=== PATIENT | male | born 1940 | race Caucasian/White ===

== ENCOUNTER 2022-03-11 05:01 | Inpatient (IN) ==
--- NOTE | 2022-02-08 14:12 | PAT Medication Instructions ---
Medication Instructions Date of Service February 08, 2022 Home Medications allopurinol 100 mg tablet 100 mg PO BID insulin glargine 100 unit/mL (3 mL) subcutaneous pen (Lantus Solostar U-100 Insulin) 20 unit subcut PM omeprazole 20 mg tablet,delayed release 20 mg PO DAILY PRN Acid Reflux albuterol sulfate 90 mcg/actuation aerosol inhaler 2 puff inhalation TID aspirin 81 mg capsule 81 mg PO QAM empagliflozin 25 mg tablet 12.5 mg PO QAM STOP 3 days before surgery empagliflozin 25 mg tablet 12.5 mg PO QAM Take morning of surgery With a small sip of water, OTHERWISE NOTHING TO EAT OR DRINK AFTER MIDNIGHT: allopurinol 100 mg tablet 100 mg PO BID omeprazole 20 mg tablet,delayed release 20 mg PO DAILY PRN Acid Reflux(if needed) albuterol sulfate 90 mcg/actuation aerosol inhaler 2 puff inhalation TID aspirin 81 mg capsule 81 mg PO QAM (unless directed otherwise by surgeon) Take evening before surgery allopurinol 100 mg tablet 100 mg PO BID insulin glargine 100 unit/mL (3 mL) subcutaneous pen (Lantus Solostar U-100 Insulin) 20 unit subcut PM albuterol sulfate 90 mcg/actuation aerosol inhaler 2 puff inhalation TID Other Notes If you have any questions please call us at [phone] or [phone] or [phone] or [phone]
--- NOTE | 2022-02-11 14:58 | Anesthesiology Consultation ---
Date of Service February 11, 2022 Assessment & Plan (1) Encounter for pre-operative examination: Chart Review Chart Review: Acceptable Risk for Surgery (pending surgeon ordered PCP clearance (response regarding creatinine)) and Patient seen in Pre Admission Testing - Awaiting surgeon ordered PCP clearance (did write note to PCP re: elevated creatinine and CXR/previous CT of thorax findings) - Check BSG AM DOS *Pt is NOT an OPJ due to age Per PAT appt on 02/11/22, patient denies any recent travel or large group activities. No known Covid positive exposures or Covid related symptoms. No known Covid infection in the past 90 days. Pt is vaccinated for Covid. Will leave to surgeon's discretion if preop Covid testing needed. Educated on importance of using Covid precautions one week prior to surgery Right Reverse TSA 10/09/20= Done under GA with Grade 1 view (cords clear), MAC #3. ETT #7.5. Atraumatic DL x 1 Teaching & Discussion Pre-Anesthesia Teaching/Discussion Notes: Instructed NPO after midnight before surgery,except medications with 15 cc of water. Medication instructions provided according to the PAT guidelines. History Surgery Operation Date: 03/11/22 08:45 Proposed Procedures p Left Total Shoulder Arthroplasty Reverse - Vaibhav Noble M.D. Height/Weight Height: 5 ft 6 in Weight: 80.7 kg Allergies Allergy/AdvReac Type Severity Reaction Status Date / Time No Known Allergies Allergy Verified 02/08/22 10:08 Medications Home Medications Medication Instructions Recorded Confirmed Last Taken allopurinol 100 mg tablet 100 mg PO BID 09/05/20 02/08/22 10/08/20 22:00 insulin glargine 100 unit/mL (3 20 unit subcut PM 09/05/20 02/08/22 10/08/20 22:00 mL) subcutaneous pen (Lantus Solostar U-100 Insulin) omeprazole 20 mg tablet,delayed 20 mg PO DAILY PRN Acid Reflux 09/05/20 02/08/22 1 Month Ago release ~09/08/20 albuterol sulfate 90 mcg/actuation 2 puff inhalation TID 02/08/22 02/08/22 Unknown aerosol inhaler aspirin 81 mg capsule 81 mg PO QAM 02/08/22 02/08/22 Unknown empagliflozin 25 mg tablet 12.5 mg PO QAM 02/08/22 02/08/22 Unknown Past Medical History Medical History (Updated 02/11/22 @ 15:17 by Suzi Lassiter PA-C) COPD (chronic obstructive pulmonary disease) Uses albuterol BID and PRN with activity Diabetes mellitus, type 2 Glucose had been fluctuating but improved recently Diabetic neuropathy R foot - no issues recently GERD (gastroesophageal reflux disease) Well controlled and stable- diet dependent Gout No recent issues Hearing deficit Bilateral hearing aid Hyperlipidemia No meds - [facility] aware Hypertension No meds - [facility] aware Exercise / Class Metabolic Activity II 4-5 Yardwork/Stairs/Walk up hill (one flight of stairs - no chest pain or SOB ) Past Family History Family History Other No family history of adverse response to anesthesia Past Surgical History Surgical History History of tonsillectomy History of transurethral resection of prostate Status post reverse total arthroplasty of right shoulder (~10/09/20) @ [facility] Dr. Noble Past Anesthesia History No Hx of Anesthesia Complications and No Family Hx of Anesthesia Complications History of PONV No Hx of PONV and No Hx of Motion Sickness Social History Smoking Status: Former smoker tobacco type: cigarettes Do You Dip or Chew Tobacco: No Smoking End Date: quit 15yrs ago Hx Alcohol Use: No Hx Substance Use: No substance use type: does not use Review of Systems CARTER- chronic and stable (hx of wheezing)- secondary to COPD. Occ coughing (chronic and stable)- secondary to COPD Snoring- no hx of sleep study Patient denies chest pain, shortness of breath at rest, wheezing, palpitations. No hx of seizures, stroke, IA. No hx of blood clots or blood transfusions Physical Exam Vital Signs VITALS BP 130/73 P 72 TEMP 98.2 SP02 95% RESP 16 Constitutional no acute distress ENMT Mouth: + small oral opening; no TMJ clicking Thyromental Distance: > or= 3.5 Finger Breadths (3.5) Mallampati Class: III Missing all teeth exception lower left molar Neck + limited neck extension (mild ) and + facial hair (advised to shave/trim ) Respiratory normal respiratory effort; no respiratory distress Auscultation: lungs clear to auscultation bilaterally; no wheezes Cardiovascular Rate/Rhythm: regular rate and regular rhythm Heart Sounds: no murmur Vessels: no carotid bruit Musculoskeletal Spine: + pain with cervical ROM Extremities: extremities normal to inspection Psychiatric Orientation: alert Lab Results Anesthesia Preop Results Results Anesthesia Widget: WBC 10.43 K/ul (4.8-10.8) 02/11/22 Hgb 15.2 g/dl (14.0-18.0) 02/11/22 Hct 46.3 % (40.1-51.0) 02/11/22 Plt 189 K/uL (130-400) 02/11/22 Na 141 mmol/L (136-145) 02/11/22 K 4.3 mmol/L (3.5-5.1) 02/11/22 Cl 107 mmol/L (98-107) 02/11/22 CO2 26 mmol/L (21-32) 02/11/22 BUN 25 mg/dl (6-23) H 02/11/22 Creat 1.51 mg/dl (0.6-1.4) H 02/11/22 Glucose Level 115 mg/dl (70-99(Fasting)) H 02/11/22 PT 10.2 Seconds (9.0-12.0) 02/11/22 PTT 30.5 Seconds (21.0-31.0) 02/11/22 INR 1.0 (0.9-1.1) 02/11/22 HA1c 6.9 % (4.5-5.6) H 02/11/22 Urine Color Yellow 02/11/22 Urine Appearance Clear (Clear) 02/11/22 Urine pH 6.0 (4.5-7.5) 02/11/22 Urine Specific [place] 1.027 (1.000-1.030) 02/11/22 Urine Protein Negative (Negative) 02/11/22 Urine Glucose (UA) 3+ (Negative) H 02/11/22 Urine Ketones Negative (Negative) 02/11/22 Urine Blood Negative (Negative) 02/11/22 Urine Nitrite Negative (Negative) 02/11/22 Urine Bilirubin Negative (Negative) 02/11/22 Urine Urobilinogen Negative (Negative) 02/11/22 Urine Leukocyte Esterase Negative (Negative) 02/11/22 Blood Type O Positive 02/11/22 Antibody Screen NEGATIVE 02/11/22 Testing Laboratory Results Elevated creatinine- did write note to PCP to address at upcoming clearance appt Electrocardiogram Date: 02/11/22 Findings: + NSR @ (67bpm ) Left axis deviation RBBB When compared to EKG from September 17, 2020- no significant peñaloza was found per cardio. Chest X-Ray Date: 02/11/22 FINDINGS: Partial visualization right shoulder total arthroplasty. The cardiomediastinal silhouette is normal. Redemonstration of a 10 mm nodule in the right lower lung. No evidence of pleural effusion or pneumothorax. IMPRESSION: No acute abnormalities are seen. A right lower lung nodule is unchanged, if not previously evaluated, CT chest can be performed. (CT of thorax done 09/25/20- see below) Other Testing CT of thorax without contrast 09/25/2020= approximately 6 mm nodule at the lateral aspect of the upper lobe of the right lung. If patient is considered clinically low risk, no follow-up necessary. If patient is considered clinically high risk, a 12-month CT scan follow-up may be considered. Also present is an approximately 12 mm hamartoma or granuloma along the right minor fissure. Mild dependent atelectatic changes at bilateral lung bases. No focal consolidation in either lung.
--- NOTE | 2022-03-10 22:14 | History & Physical Report ---
Date of Service March 10, 2022 Assessment & Plan (1) Left rotator cuff tear arthropathy: Plan: His MRI confirms left shoulder massive, retracted, full-thickness rotator cuff tear with near complete fatty atrophy of the rotator cuff muscle bellies and proximal migration of the humeral head, consistent with rotator cuff tear arthropathy. Conservative management with steroid injections have just been ineffective for him. I advised him that his only viable surgical treatment option for this left shoulder would be a reverse total shoulder arthroplasty, similar to his right side. He had excellent results on the right side, and would like to pursue similar treatment on the left. I think is reasonable. Risks, benefits, and alternatives of surgery were explained in detail. The surgical procedure, as well as postoperative recovery and rehabilitation, was al so explained in detail. Risks include bleeding; infection; damage to surrounding structures such as nerves, blood vessels, and tendons that run in the area; persistent pain or stiffness; hardware failure; dislocation; brachial plexus palsy; blood clots; or need for further surgery. The patient understands all of this and wishes to proceed with surgery. Informed consent was obtained. History of Present Illness Chief Complaint: Left shoulder pain Primary Care Provider: NO PCP Mr. Rey returns today primarily for his left shoulder pain. He has had pain in this left shoulder for at least 3 years, possibly longer with gradual progressive worsening. This significantly worsened around November 2021 when he strained it attempting to help his during a syncopal episode. He previously had a left shoulder steroid injection in March 2020 when he lived in [place], and I gave him 1 in July 2020. Neither one of these injections gave him any significant improvement in his pain. He has since had a reverse total shoulder arthroplasty on his right with excellent results and complete resolution of his pain on that side, and he is interested in similar treatment on his left. Allergies Allergy/AdvReac Type Severity Reaction Status Date / Time No Known Allergies Allergy Verified 02/08/22 10:08 Home Medications Medication Instructions Recorded Confirmed Type allopurinol 100 mg tablet 100 mg PO BID 09/05/20 02/08/22 History insulin glargine 100 unit/mL (3 20 unit subcut PM 09/05/20 02/08/22 History mL) subcutaneous pen (Lantus Solostar U-100 Insulin) omeprazole 20 mg tablet,delayed 20 mg PO DAILY PRN Acid Reflux 09/05/20 02/08/22 History release albuterol sulfate 90 mcg/actuation 2 puff inhalation TID 02/08/22 02/08/22 History aerosol inhaler aspirin 81 mg capsule 81 mg PO QAM 02/08/22 02/08/22 History empagliflozin 25 mg tablet 12.5 mg PO QAM 02/08/22 02/08/22 History Past Med/Surg History Medical History (Updated 03/10/22 @ 22:14 by Vaibhav Noble M.D.) COPD (chronic obstructive pulmonary disease) Uses albuterol BID and PRN with activity Diabetes mellitus, type 2 Glucose had been fluctuating but improved recently Diabetic neuropathy R foot - no issues recently GERD (gastroesophageal reflux disease) Well controlled and stable- diet dependent Gout No recent issues Hearing deficit Bilateral hearing aid Hyperlipidemia No meds - [facility] aware Hypertension No meds - [facility] aware Surgical History History of tonsillectomy History of transurethral resection of prostate Status post reverse total arthroplasty of right shoulder (~10/09/20) @ [facility] Dr. Noble Family History Other No family history of adverse response to anesthesia Social History Smoking Status: Former smoker Second Hand Exposure: No; Hx Alcohol Use: No Hx Substance Use: No Preferred Language: Samoan Communication Ability: Effective Position Classification Specialist Required: No Beliefs That Will Affect Care: None Current Living Situation: Spouse Feels Safe at Home: Yes Assistive Devices: Hearing Aid - Bilateral Physical Exam Physical Exam: Examination of the left shoulder shows significant limitation in shoulder range of motion due to pain, with palpable crepitus during motion. He has about 150 degrees of active abduction, and external rotation only to neutral. Rotator cuff strength is globally weak. Results & Data ([facility]) Diagnostic Findings Previous x-rays of the left shoulder were reviewed. They show obvious proximal migration of the humeral head, with articulation and remodeling on the undersurface of the acromion, consistent with rotator cuff tear arthropathy. New MRI of the left shoulder done this morning was reviewed. It is significantly limited by motion artifact. However, does show complete full- thickness tear of the entirety of the supraspinatus and infraspinatus tendons, with retraction to the level of the glenoid rim. There is near complete fatty atrophy of the supraspinatus and infraspinatus muscle bellies. He may have a proximal biceps tendon rupture, but this is difficult to determine.
[2022-03-11] MEDS ORDERED: ceFAZolin 2000MG 2,000 MG/15 ML SYR IV SCH (06:00)
[2022-03-11] MEDS ORDERED: ACETAMINOPHEN 500 MG TAB PO SCH (06:00)
[2022-03-11] MEDS ORDERED: GABAPENTIN 300 MG CAP PO SCH (06:00)
[2022-03-11] MEDS ORDERED: TRANEXAMIC ACID 1,000 MG **IV Pre-op IV SCH (06:00)
[2022-03-11] MEDS ORDERED: dexAMETHasone 4 MG TAB PO SCH (06:00)
[2022-03-11] MEDS ORDERED: CeleBREX 200 MG CAP PO SCH (06:00)
[2022-03-11] MEDS ORDERED: METOCLOPRAMIDE HCL 10 MG TABLET PO SCH (06:00)
[2022-03-11] MEDS ORDERED: LR 15ML/HR IV SCH (06:00)
[2022-03-11] MEDS ORDERED: FAMOTIDINE 20 MG TAB PO SCH (06:00)
[2022-03-11] MEDS ORDERED: BUPIVACAINE 0.5 % 5 MG/1 ML PF 10ML VIAL ONE (06:15)
[2022-03-11] MEDS ORDERED: ONDANSETRON INJ 2 MG/ML 2 ML VIAL IV PRN ×2 (06:30→10:05)
[2022-03-11] MEDS ORDERED: ATROPINE SULFATE 0.1 MG/ML 10ML SYR IV PRN (06:30)
[2022-03-11] MEDS ORDERED: fentaNYL citrate 100 MCG/2 ML VIAL IV PRN (06:30)
[2022-03-11] MEDS ORDERED: ePHEDrine sulfate 50 MG/ML AMP IV PRN (06:30)
[2022-03-11] MEDS ORDERED: ONDANSETRON INJ 2 MG/ML 2 ML VIAL ONE (06:41)
[2022-03-11] MEDS ORDERED: fentaNYL citrate 100 MCG/2 ML VIAL ONE (06:41)
[2022-03-11] MEDS ORDERED: MIDAZOLAM HCL 1 MG/ML 2ML VIAL ONE (06:41)
[2022-03-11] MEDS ORDERED: PROPOFOL IV EMULSION 10 MG/ML 20 ML VIAL IV ONE (06:41)
[2022-03-11] MEDS ORDERED: LIDOCAINE 2% 2 ML VIAL/AMP(20MG/ML) INFIL ONE (06:41)
--- NOTE | 2022-03-11 07:00 | History & Physical Bridge Note ---
Date of Service March 11, 2022 History & Physical Bridge Note I have examined the patient, reviewed the History & Physical and in the interval since the performance of the History & Physical I have noted the following changes of clinical significance: no changes noted
[2022-03-11] MEDS ORDERED: NEOSTIGMINE METHYLSULFATE 1 MG/ML 10ML VIAL ONE (08:01)
[2022-03-11] MEDS ORDERED: GLYCOPYRROLATE 0.2 MG/ML VIAL ONE (08:01)
[2022-03-11] MEDS ORDERED: ROCURONIUM BROMIDE 10 MG/ML 5 ML VIAL IV ONE (08:01)
--- NOTE | 2022-03-11 09:04 | Operative Report ---
Post Operative Report Pre & Post Diagnosis Operation Date: 03/11/22 07:00 Pre-Op Diagnosis: Left Shoulder Rotator Cuff Tear Arthropathy Post-Op Diagnosis: Left Shoulder Rotator Cuff Tear Arthropathy with proximal biceps tendon rupture I identified the patient and participated in the time-out.: Yes Procedure Operation Date: 03/11/22 07:00 Actual Procedures Left reverse total shoulder arthroplasty (64147) - Vaibhav Noble M.D. Surgeon Vaibhav Noble Bond Runner Harjit Ridley PA-C Estimated Blood Loss 75 Findings Consistent with Post-Op Diagnosis Specimens None Drains None Anesthesia Type General Regional Complications none Disposition Disposition: Recovery Room Indications Mr. Rey is a 81-year-old male with left shoulder pain and weakness. History, clinical exam, and imaging were consistent with the above diagnosis. Risks, benefits, and alternatives of surgery were explained in detail. The patient understood all this and wished to proceed. Description of Procedure Components Implanted: Tornier Reverse Total Shoulder implants Perform glenoid baseplate: 25mm, 15 degree full wedge with 6.5mm central screw and 5.0mm peripheral screws Glenosphere: 39mm standard Ascend Flex humeral stem: 4B Standard length (78mm) Humeral tray: 1.5 mm offset, +0mm thickness Polyethylene insert: 39mm, +6mm thickness Patient was identified in the preoperative holding area. Operative extremity was marked. Regional blockade was given by the Anesthesia Staff. Patient was then brought back to the operating room, and general anesthesia was induced without complication. Appropriate weight-based dose of Ancef was infused intravenously for antibiotic prophylaxis. The patient was then placed in the beachchair position. Left arm was then prepped and draped in a standard sterile fashion using Chlorhexidine prep. A standard deltopectoral incision was made through the skin and subcutaneous tissue. The cephalic vein was identified and retracted medially. Small branches to the deltoid were coagulated as necessary. The clavipectoral fascia was then incised and the subdeltoid space was opened. The rotator cuff was found to be deficient, and I therefore decided to perform a reverse total shoulder arthroplasty as planned preoperatively. The biceps tendon was noted to be absent from the bicipital groove, consistent with a preoperative biceps tendon rupture. Therefore, no biceps tenodesis was performed. The remaining subscapularis tendon was elevated subperiosteally off of the lesser tuberosity. The glenohumeral joint was then dislocated, and large osteophytes were debrided with a ronguer. The intramedullary canal of the humerus was then opened with a canal finder. The humeral head cut was then made in the appropriate inclination and version using the cutting guide. The humeral canal was then sequentially broached to the appropriate size. A protective cap was then placed on top of the humeral trial. I then turned my attention to the glenoid. The proximal stump of the biceps tendon was excised, along with the labrum circumferentially around the glenoid. The Blueprint drill guide was then positioned on the glenoid, and the guidepin was then inserted. The 15 degree angled reamer was then inserted over the guidepin and an reamed to an appropriate depth. The central screw hole was drilled, and appropriate length 6.5mm central screw was selected. The baseplate was then implanted into place according to our preoperative Blueprint plan by tightening down the central screw. A peripheral 5mm nonlocking screw was placed postero-superiorly first for additional compression of the baseplate, and then additional locking 5 mm peripheral screws were placed to complete fixation of the baseplate. Glenosphere was then impacted and secured. A trial humeral tray and insert were placed on the trial humeral stem, and a trial reduction was carried out. Once I achieved acceptable joint stability and range of motion with the trial implants, the final humeral implants were assembled on the back table and then impacted into position. I then took the shoulder through full range of motion to ensure good stability and acceptable motion. Wound was then copiously irrigated with sterile saline. Deep fascia was closed with 0 V-lock suture. Subcutaneous tissue was closed with 2-0 V-lock, and skin was closed with 3-0 V-lock. Skin was then sealed with Dermabond. Sterile dressings were then applied with a waterproof silver-impregnated dressing, and the arm was placed into a sling. The patient was awakened from anesthesia and taken to the Post Anesthesia Care Unit in stable condition. There were no immediate complications from the procedure. I was present and scrubbed for the entire procedure, with the exception of final skin closure and dressing application. Due to the complex nature of the procedure, the entire surgery was performed with the operational assistance of Harjit Ridley PA-C. The visitor information assistant, under direct supervision, was involved in the performance of all aspects of the surgical procedure including hemostasis, tissue incision and retraction, instrument management, patient positioning, and wound closure. I attest to the content of the Intraoperative Record and any orders documented therein. Any exceptions are noted below.
[2022-03-11] MEDS ORDERED: METOCLOPRAMIDE HCL INJ 5 MG/ML 2 ML VIAL IV PRN (10:05)
[2022-03-11] MEDS ORDERED: MAGNESIUM HYDROXIDE SUSP 30 ML UDC PO PRN (10:05)
[2022-03-11] MEDS ORDERED: NALOXONE HCL 0.4 MG/1 ML VIAL/CARP IV PRN (10:05)
[2022-03-11] MEDS ORDERED: bisacodyL 10 MG SUPP PR PRN (10:05)
[2022-03-11] MEDS ORDERED: oxyCODONE HCL IR 5 MG TAB (IMMEDIATE RELEASE) PO PRN (10:05)
[2022-03-11] MEDS ORDERED: PANTOprazole 40 MG TAB PO PRN (10:13)
[2022-03-11] MEDS ORDERED: PHARMACY GLYCEMIC MGMT CONSULT PRN (10:18)
[2022-03-11] MEDS: SODIUM CHLORIDE 0.9% 1000ML 1,000 ML IV SCH ×2 (10:20→21:42)
--- NOTE | 2022-03-11 10:40 | Anesthesiology Progress Note ---
Date of Service March 11, 2022 Anesthesia Post Procedure Vital Signs Vital Signs: Temp Pulse Pulse Resp BP Pulse Ox O2 Del Method 03/11/22 10:26 97.7 F 68 18 130/78 94 Nasal Cannula 03/11/22 10:03 97.7 F 65 18 125/68 94 Nasal Cannula 03/11/22 09:50 96.8 F L 63 15 125/63 94 Nasal Cannula 03/11/22 09:40 67 14 128/67 91 Nasal Cannula 03/11/22 09:30 69 14 132/77 98 Oxymask 03/11/22 09:20 96.8 F L 71 14 133/71 98 Oxymask 03/11/22 05:39 98.1 F 77 16 152/80 H 95 Room Air O2 Flow Rate 03/11/22 10:26 2 03/11/22 10:03 2 03/11/22 09:50 2 03/11/22 09:40 2 03/11/22 09:30 4 03/11/22 09:20 6 03/11/22 05:39 Pain Intensity Left Shoulder: Pain Intensity: 4 Transfer of Care Handoff Completed per policy Notes Mental Status: alert / awake / arousable and participated in evaluation Patient Amnestic to Procedure: Yes Nausea / Vomiting: adequately controlled Pain: adequately controlled Airway Patency, RR, SpO2: stable & adequate BP & HR: stable & adequate Hydration State: stable & adequate Anesthetic Complications: no major complications apparent and Pt Satisfied with anesthetic care
[2022-03-11] MEDS ORDERED: GLUCOSE 10 TAB/TUBE PO PRN (11:15)
[2022-03-11] MEDS ORDERED: CARBOHYDRATES FOR HYPOGLYCEMIA PO PRN (11:15)
[2022-03-11] MEDS ORDERED: GLUCOSE 40% GEL 15 GM TUBE PO PRN (11:15)
[2022-03-11] MEDS ORDERED: GLUCAGON FOR INJ 1 MG VIAL SQ PRN (11:15)
[2022-03-11] MEDS ORDERED: DEXTROSE 50% 50 ML SYRINGE IV PRN (11:15)
[2022-03-11] MEDS: ACETAMINOPHEN 500 MG TAB PO SCH ×3 (12:04→23:00)
[2022-03-11] MEDS: INSULIN ASPART PER UNIT SC SCH ×3 (12:37→21:30)
--- NOTE | 2022-03-11 13:06 | Pharmacy Report ---
Pharmacy Glycemic Short Note 2 - Date of Service March 11, 2022 - Glycemic Short BSG Results (Last 24 hours): 03/11/22 03/11/22 03/11/22 05:19 09:22 12:06 POC Glucose 155 H 157 H 231 H OUTPATIENT ANTIDIABETIC REGIMEN: * Lantus 20 units SQ qPM * Jardiance 12.5mg PO qAM * HbA1c: 6.9% (02/11/22) ASSESSMENT: * Mr Rey is a 81yo diabetic M s/p L total shoulder this morning w/ Dr Noble. * Pt received PO dexamethasone pre-op, which is likely to cause steroid-induced hyperglycemia. * Pt is ordered a regular diet, which he appears to have tolerated for lunch today. * Novolog added to patient's Lantus regimen on admission. * Will follow and adjust as indicated. PLAN FOR INPATIENT GLYCEMIC CONTROL: * Hold outpatient oral diabetes medications * Basal insulin * Lantus 20 units SQ qPM * Bolus insulin * NovoLog per scale ACHS or Q6hrs while NPO * Goal Range: Low 110 mg/dL - High 140 mg/dL * Correction Factor: 40 mg/dL/unit * Nutritional / Prandial insulin per carb ratio of 1 unit per 15 grams CHO consumed
--- NOTE | 2022-03-11 13:13 | XRay Report ---
XR shoulder LT min 2V routine CLINICAL HISTORY: Post shoulder surgery. COMPARISON: None FINDINGS: Alignment of the left shoulder arthroplasty is anatomic. No periprosthetic fracture is masha ntified. No unexpected radiopaque foreign bodies are present. IMPRESSION: Expected findings following left shoulder arthroplasty. ACT 112: Negative or not required by law. Electronically signed by: Josef Benajmin M.D. 03/11/2022 1:12 PM
[2022-03-11] MEDS: ALBUTEROL HFA 8 GM INHALER INH SCH ×2 (13:49→20:05)
[2022-03-11] MEDS: IBUPROFEN 600 MG TAB PO SCH ×2 (14:57→20:13)
[2022-03-11] MEDS: ceFAZolin 2000MG 2,000 MG/15 ML SYR IV SCH ×2 (14:59→23:00)
[2022-03-11] MEDS: allopurinoL 100 MG TAB PO SCH (20:13)
[2022-03-11] MEDS: DOCUSATE SODIUM 100 MG CAP PO SCH (20:13)
[2022-03-11] MEDS ORDERED: SENNA 8.6 MG TAB PO SCH (21:00)
[2022-03-11] MEDS ORDERED: LANTUS PER UNIT CHARGE SQ SCH (21:00)
[2022-03-12] MEDS: IBUPROFEN 600 MG TAB PO SCH ×2 (03:52→08:55)
[2022-03-12] MEDS: ACETAMINOPHEN 500 MG TAB PO SCH ×2 (06:02→12:53)
[2022-03-12 06:57] LABS: Basophils # (auto) 0.02 K/uL (0-0.2); Basophils % (auto) 0.1 %; Hematocrit (blood only) 38.7 % (40.1-51.0); Hemoglobin 12.7 g/dl (14.0-18.0); Immature Granulocytes # (auto) 0.06 K/uL (0.00-0.02); Immature Granulocytes % (auto) 0.4 %; Lymphocytes # (auto) 0.97 K/uL (1.2-3.4); Lymphocytes % (auto) 6.3 %; Mean Corpuscular Hemoglobin 28.5 pg (25.0-34.0); Mean Corpuscular Hgb Conc 32.8 g/dL (32.0-36.0); Mean Corpuscular Volume 86.8 fL (80.0-100.0); Mean Platelet Volume 9.8 fL (9.4-12.4); Monocytes # (auto) 1.04 K/uL (0.24-0.82); Monocytes % (auto) 6.7 %; Neutrophils # (auto) 13.32 K/uL (1.4-6.5); Neutrophils % (auto) 86.5 %; Platelet Count 178 K/uL (130-400); RDW Coefficient of Variation 14.3 % (11.5-14.5); RDW Standard Deviation 45.1 fL (36.4-46.3); Red Blood Count 4.46 M/uL (4.63-6.08); White Blood Count 15.41 K/ul (4.8-10.8)
[2022-03-12] MEDS: ALBUTEROL HFA 8 GM INHALER INH SCH ×2 (07:05→12:27)
[2022-03-12 07:21] LABS: BUN Creatinine Ratio 18.1 (10-20); Calcium 8.2 mg/dl (8.5-10.1); Creatinine Clr Calc Pharmacy 41.3 ml/min; Est GFR (African American) 53.2 ml/min; Est GFR (Non-African American) 45.9 ml/min; Potassium 4.8 mmol/L (3.5-5.1)
[2022-03-12] MEDS: INSULIN ASPART PER UNIT SC SCH ×2 (08:54→12:52)
[2022-03-12] MEDS: DOCUSATE SODIUM 100 MG CAP PO SCH (08:55)
[2022-03-12] MEDS: allopurinoL 100 MG TAB PO SCH (08:55)
[2022-03-12] MEDS ORDERED: NON-FORMULARY MEDICATION (Empagliflozin 25 mg Tablet) PO SCH (09:00)
[2022-03-12] MEDS ORDERED: MULTIVITAMIN TAB PO SCH (09:00)
[2022-03-12] MEDS ORDERED: ASPIRIN 325 MG ECTAB PO SCH (09:00)
--- NOTE | 2022-03-12 09:33 | Orthopedic Progress Note ---
Date of Service March 12, 2022 Assessment & Plan (1) Left rotator cuff tear arthropathy: Plan: Postop day 1 status post left reverse total shoulder arthroplasty. PT/OT protocols. Nonweightbearing on the left upper extremity. DVT prophylaxis-aspirin p.o. daily, SCDs. Pain management as written. Mild increase in his creatinine this morning. Preoperative creatinine was 1.51. This morning is 1.44. Discussed with patient that he should follow-up with his primary care physician for repeat labs in the near future. DC planning-patient planning for outpatient PT upon discharge. Plan for discharge to home today. Admission and Anticipated Discharge Date Admission Date: March 11, 2022 Subjective Postop day 1 Patient sitting up in bed awake and alert. No complaints this morning. Pain is controlled. States he has a little bit of residual tingling in his thumb from the operative side but otherwise feels well. Denies chest pain, shortness of breath, lightheadedness. Physical Exam Physical Exam: Silverlon dressing is clean, dry, and intact. Patient has good range of motion of his left wrist and fingers. Good strength. Mild residual numbness in the left thumb. Cap refill is less than [address] Results & Data ([facility]) Vital Signs (Past 12 Hours) Vital Signs Temp Pulse Pulse Resp BP Pulse Ox O2 Del Method 03/12/22 07:05 73 14 92 Room Air 03/12/22 08:20 36.5 C 71 16 129/70 92 Room Air 03/12/22 02:23 36.5 C 67 18 121/63 93 Room Air 03/11/22 22:27 36.5 C 69 17 128/64 93 Room Air FiO2 03/12/22 07:05 21 03/12/22 08:20 03/12/22 02:23 03/11/22 22:27 Laboratory Results Laboratory Results WBC 15.41 K/ul (4.8-10.8) H 03/12/22 06:29 RBC 4.46 M/uL (4.63-6.08) L 03/12/22 06:29 Hgb 12.7 g/dl (14.0-18.0) L 03/12/22 06:29 Hct 38.7 % (40.1-51.0) L 03/12/22 06:29 MCV 86.8 fL (80.0-100.0) 03/12/22 06: MCH 28.5 pg (25.0-34.0) 03/12/22: MCHC 32.8 g/dL (32.0-36.0) 03/12/22 06: RDW Std Deviation 45.1 fL (36.4-46.3) 03/12/22: RDW Coeff of Sheron 14.3 % (11.5-14.5) 03/12/22: Plt Count 178 K/uL (130-400) 03/12/22 06: MPV 9.8 fL (9.4-12.4) 03/12/22: Immature Gran % (Auto) 0.4 % 03/12/22: Neut % (Auto) 86.5 % 03/12/22 06: Lymph % (Auto) 6.3 % 03/12/22: Delta % (Auto) 6.7 % 03/12/22: Eos % (Auto) 0.0 % 03/12/22 06: Baso % (Auto) 0.1 % 03/12/22: Neut # (Auto) 13.32 K/uL (1.4-6.5) H 03/12/22 06: Lymph # (Auto) 0.97 K/uL (1.2-3.4) L 03/12/22: Delta # (Auto) 1.04 K/uL (0.24-0.82) H 03/12/22: Eos # (Auto) 0.00 K/uL (0-0.50) 03/12/22 06: Baso # (Auto) 0.02 K/uL (0-0.2) 03/12/22: Immature Gran # (Auto) 0.06 K/uL (0.00-0.02) H 03/12/22: Sodium 134 mmol/L (136-145) L 03/12/22 06: Potassium 4.8 mmol/L (3.5-5.1) 03/12/22: Chloride 106 mmol/L (98-107) 03/12/22 06: Carbon Dioxide 23 mmol/L (21-32) 03/12/22 06:29 Anion Gap 5 (3-11) 03/12/22 06:29 BUN 26 mg/dl (6-23) H 03/12/22 06:29 Creatinine 1.44 mg/dl (0.6-1.4) H 03/12/22 06:29 Est Cr Clr Drug Dosing 41.3 ml/min 03/12/22 06:29 Est GFR ( Amer) 53.2 ml/min 03/12/22 06:29 Est GFR (Non-Af Amer) 45.9 ml/min 03/12/22 06:29 BUN/Creatinine Ratio 18.1 (10-20) 03/12/22 06:29 Glucose 141 mg/dl (70-99(Fasting)) H 03/12/22 06:29 POC Glucose 137 mg/dl (70-99) H 03/12/22 07:57 Calcium 8.2 mg/dl (8.5-10.1) L 03/12/22 06:29 SARS-CoV-2, RNA, NAAT NEGATIVE (NEGATIVE) 03/11/22 05:20 Impressions Shoulder X-Ray 03/11/22 09:14 XR shoulder LT min 2V routine CLINICAL HISTORY: Post shoulder surgery. COMPARISON: None FINDINGS: Alignment of the left shoulder arthroplasty is anatomic. No periprosthetic fracture is identified. No unexpected radiopaque foreign bodies are present. IMPRESSION: Expected findings following left shoulder arthroplasty. ACT 112: Negative or not required by law. Electronically signed by: Josef Benjamin M.D. 03/11/2022 1:12 PM
--- NOTE | 2022-03-16 12:44 | Discharge Summary ---
Date of Service March 16, 2022 Admission HPI Per Admitting Provider Mr. Rey returns today primarily for his left shoulder pain. He has had pain in this left shoulder for at least 3 years, possibly longer with gradual progressive worsening. This significantly worsened around November 2021 when he strained it attempting to help his during a syncopal episode. He previously had a left shoulder steroid injection in March 2020 when he lived in [place], and I gave him 1 in July 2020. Neither one of these injections gave him any significant improvement in his pain. He has since had a reverse total shoulder arthroplasty on his right with excellent results and com plete resolution of his pain on that side, and he is interested in similar treatment on his left. Admission Exam Per Admitting Provider Physical Exam: Examination of the left shoulder shows significant limitation in shoulder range of motion due to pain, with palpable crepitus during motion. He has about 150 degrees of active abduction, and external rotation only to neutral. Rotator cuff strength is globally weak. Principal Diagnosis Left Rotator Cuff Tear Arthropathy Discharge Data Allergies Allergy/AdvReac Type Severity Reaction Status Date / Time No Known Allergies Allergy Verified 03/11/22 05:34 Procedures Performed Operation Date: 03/11/22 07:00 Actual Procedures p Left Total Shoulder Arthroplasty Reverse(Left) - Vaibhav Noble M.D. Ordered Studies 03/11/22 05:00 US - OR guided needle placemen Routine Hospital Course (1) Left rotator cuff tear arthropathy: Patient:MIGEL REY Admit Date:03/11/22 MR#:[id number] Att Phy:Vaibhav Noble M.D. Acct ID:[id number] [facility] Phy:Saji Boyd MD Date:1940 [facility] Phy: Age:81 Location:3E Sex:M Room/Bed:E323-1 cc: ~ *NOTICE TO RECEIVING LIBERTARIAN/AGENCY This information is strictly Confidential and protected under [place] law. [place] law prohibits you from making any further disclosure of this information unless further disclosure is expressly permitted by the written consent of the person to whom it pertains or is authorized by law. A general authorization for the release of medical or other information is not sufficient for this purpose. Hospital accepts no responsibility if the information is made available to any other person, INCLUDING THE PATIENT. Date of Service March 12, 2022 Assessment & Plan (1) Left rotator cuff tear arthropathy: Plan: Postop day 1 status post left reverse total shoulder arthroplasty. PT/OT protocols. Nonweightbearing on the left upper extremity. DVT prophylaxis-aspirin p.o. daily, SCDs. Pain management as written. Mild increase in his creatinine this morning. Preoperative creatinine was 1.51. This morning is 1.44. Discussed with patient that he should follow-up with his primary care physician for repeat labs in the near future. DC planning-patient planning for outpatient PT upon discharge. Plan for discharge to home today. Admission and Anticipated Discharge Date Admission Date: March 11, 2022 Subjective Postop day 1 Patient sitting up in bed awake and alert. No complaints this morning. Pain is controlled. States he has a little bit of residual tingling in his thumb from the operative side but otherwise feels well. Denies chest pain, shortness of breath, lightheadedness. Physical Exam Physical Exam: Silverlon dressing is clean, dry, and intact. Patient has good range of motion of his left wrist and fingers. Good strength. Mild residual numbness in the left thumb. Cap refill is less than [address] Results & Data ([facility]) Vital Signs (Past 12 Hours) Vital Signs Temp Pulse Pulse Resp BP Pulse Ox O2 Del Method 03/12/22 07:05 73 14 92 Room Air 03/12/22 08:20 36.5 C 71 16 129/70 92 Room Air 03/12/22 02:23 36.5 C 67 18 121/63 93 Room Air 03/11/22 22:27 36.5 C 69 17 128/64 93 Room Air FiO2 03/12/22 07:05 21 03/12/22 08:20 03/12/22 02:23 03/11/22 22:27 Laboratory Results Laboratory Results WBC 15.41 K/ul (4.8-10.8) H 03/12/22 06:29 RBC 4.46 M/uL (4.63-6.08) L 03/12/22 06:29 Hgb 12.7 g/dl (14.0-18.0) L 03/12/22 06:29 Hct 38.7 % (40.1-51.0) L 03/12/22 06:29 MCV 86.8 fL (80.0-100.0) 03/12/22 06: MCH 28.5 pg (25.0-34.0) 03/12/22: MCHC 32.8 g/dL (32.0-36.0) 03/12/22: RDW Std Deviation 45.1 fL (36.4-46.3) 03/12/22: RDW Coeff of Sheron 14.3 % (11.5-14.5) 03/12/22: Plt Count 178 K/uL (130-400) 03/12/22 06: MPV 9.8 fL (9.4-12.4) 03/12/22: Immature Gran % (Auto) 0.4 % 03/12/22: Neut % (Auto) 86.5 % 03/12/22 06: Lymph % (Auto) 6.3 % 03/12/22: [place] % (Auto) 6.7 % 03/12/22: Eos % (Auto) 0.0 % 03/12/22 06: Baso % (Auto) 0.1 % 03/12/22: Neut # (Auto) 13.32 K/uL (1.4-6.5) H 03/12/22: Lymph # (Auto) 0.97 K/uL (1.2-3.4) L 03/12/22: [place] # (Auto) 1.04 K/uL (0.24-0.82) H 03/12/22: Eos # (Auto) 0.00 K/uL (0-0.50) 03/12/22: Baso # (Auto) 0.02 K/uL (0-0.2) 03/12/22: Immature Gran # (Auto) 0.06 K/uL (0.00-0.02) H 03/12/22: Sodium 134 mmol/L (136-145) L 03/12/22 06: Potassium 4.8 mmol/L (3.5-5.1) 03/12/22: Chloride 106 mmol/L (98-107) 03/12/22: Carbon Dioxide 23 mmol/L (21-32) 03/12/22 06:29 Anion Gap 5 (3-11) 03/12/22 06:29 BUN 26 mg/dl (6-23) H 03/12/22 06:29 Creatinine 1.44 mg/dl (0.6-1.4) H 03/12/22 06:29 Est Cr Clr Drug Dosing 41.3 ml/min 03/12/22 06:29 Est GFR ( Amer) 53.2 ml/min 03/12/22 06:29 Est GFR (Non-Af Amer) 45.9 ml/min 03/12/22 06:29 BUN/Creatinine Ratio 18.1 (10-20) 03/12/22 06:29 Glucose 141 mg/dl (70-99(Fasting)) H 03/12/22 06:29 POC Glucose 137 mg/dl (70-99) H 03/12/22 07:57 Calcium 8.2 mg/dl (8.5-10.1) L 03/12/22 06:29 SARS-CoV-2, RNA, NAAT NEGATIVE (NEGATIVE) 03/11/22 05:20 Impressions Shoulder X-Ray 03/11/22 09:14 XR shoulder LT min 2V routine CLINICAL HISTORY: Post shoulder surgery. COMPARISON: None FINDINGS: Alignment of the left shoulder arthroplasty is anatomic. No periprosthetic fracture is identified. No unexpected radiopaque foreign bodies are present. IMPRESSION: Expected findings following left shoulder arthroplasty. ACT 112: Negative or not required by law. Electronically signed by: Josef Benjamin M.D. 03/11/2022 1:12 PM Total Time Total Time Spent Total Time Spent (In Minutes): 5 Discharge Plan Discharge Items Patient Disposition: Home - Self-Care Reason For Visit: Left Shoulder Rotator Cuff Tear Arthropathy Discharge Diagnosis: Left shoulder rotator cuff tear arthropathy Activity: Per Instructions section Non-emergency contact: Surgeon Call non-emergency contact if: your pain is not controlled, your temperature is above 101.5, your wound has increased redness and your wound has increased drainage Follow-up/Referrals: Vaibhav Noble M.D. [Physician] - (Follow-up with Dr. Noble is in 2 weeks for your first postoperative appointment.) Saji Boyd MD [Primary Care Provider] - (Please follow-up with Dr. Smeal in the next 10 to 14 days for plans to recheck laboratory values starting her kidney function.) Diet: Carb Consistent or DM2 Addtl Attending Provider Instructions: Things to Watch Out For -Go to the Emergency Room if you have sudden onset of nausea, vomiting, chest pain, shortness of breath, or uncontrollable pain. -Call the clinic or go to the Emergency Room if you have a sudden increase in the amount of wound drainage or the drainage becomes thick, yellow or green, or foul-smelling. -For routine questions, call the clinic at [phone] during regular business hours (8am-5pm). For urgent issues after regular business hours, you may call the clinic to be connected to the on-call physician. Dressings -A special waterproof, silver-impregnated dressing was placed on your shoulder. Keep this dressing in place for 1 week after surgery. You may shower with the waterproof dressing in place, but do not soak the dressing in the bathtub or pool. -One week after surgery, you may remove the waterproof dressing. You may continue to shower, and let water run BRIEFLY over the incision, but do not soak the incision in the bathtub or pool for 2 weeks. You may also gently clean the incision with mild soap and water; pat the incision dry after cleaning-do not rub the incision. Apply a new dressing daily thereafter. Shoulder Exercises -Keep your operative shoulder in the sling for comfort, except as detailed below. -You should come out of the sling 4-5 times a day for passive pendulum exercises: lean over and swing your arm in a circular pattern. -You should also do active-assisted forward flexion exercises: use your opposite hand to lift your operative arm forward to 90 degrees. -Do not use your arm to push yourself up out of bed or up from a seated position. Ice Pack -You may use an ice pack for pain relief. You should use it 20-30 minutes at a time. Place a towel between the ice pack and your skin to prevent frostbite. -You should use the ice pack fairly regularly for the first 1-2 weeks after surgery to help reduce pain and inflammation. -About 2 weeks after your surgery, you should start using heat to loosen up your shoulder prior to doing your stretching exercises, then use the cooling sleeve after your exercises are complete to reduce swelling and pain. Pain Medicines -Your prescriptions for pain medications have already been sent to the pharmacy on file at [facility]. -You have been prescribed an anti-inflammatory (Motrin/ibuprofen) and a non- narcotic pain medicine (Tylenol/acetaminophen). These are your primary pain medications. Take them each every 6 hours as instructed. It is recommended that you stagger these medicines every 3 hours (i.e. take ibuprofen at 8:00 am, then acetaminophen at 11:00 am, then ibuprofen at 2:00 pm, etc) -DO NOT take any additional anti-inflammatories (Advil, Aleve/naproxen, Mobic/meloxicam, Celebrex) or any additional Tylenol/acetaminophen products with these prescribed medications. -You have also been prescribed an additional narcotic pain medication (oxycodone). Take this medicine ONLY for breakthrough pain not controlled by the ibuprofen and acetaminophen. -Do not drive or operate heavy machinery while taking the narcotic medication. -Common side effects of narcotic pain medicines include itching, nausea, co nstipation, and feeling "loopy". However, if you develop a rash or hives, stop taking the medicine and call the clinic. If you develop swelling in your throat or difficulty breathing, go to the Emergency Room or call 911 IMMEDIATELY. -You may take over the counter stool softeners if needed for constipation. Aspirin -Take a full strength (325mg) aspirin every day for 4 weeks (28 days) to prevent blood clots. -If you were taking a baby aspirin (81mg) prior to surgery, you may resume taking this 81mg dose after you complete the 28-day course of the 325mg strength dose; do not take the 325mg dose in addition to your 81mg dose. -Be aware that you will bruise easier while taking Aspirin; this is normal. However, if you develop a significantly large area of swelling after an injury, or have a cut that will not stop bleeding, call the clinic or go to the Emergency Room immediately. Pending Studies at Discharge: No Stand-Alone Forms: My [facility] [address], Opioid Pain Management Medications and DC Order Prescriptions: Continued allopurinol 100 mg Tablet 100 mg PO BID insulin glargine [Lantus Solostar U-100 Insulin] 100 unit/mL (3 mL) Insulin Pen 20 unit SUBCUT PM omeprazole 20 mg Tablet,Delayed Release (Dr/Ec) 20 mg PO DAILY PRN (Reason: Acid Reflux) albuterol sulfate 90 mcg/actuation Hfa Aerosol Inhaler 2 puff INHALATION TID empagliflozin 25 mg Tablet 12.5 mg PO QAM Discontinued aspirin 81 mg Capsule 81 mg PO QAM Discharge Orders: Discharge Order (Routine); Ordered 03/12/22 Ordered By: Harjit Ridley Admission Data Admit Date/Time: 03/11/22 09:14 Attending Provider: Vaibhav Noble Admit Provider: Vaibhav Noble Primary Care Provider: Saji Boyd Other Providers: [facility],Hospital Other Interventions: Discharge Summary Assessment (RN) Last Done: 03/12/22 09:56
== END 2022-03-12 14:52 | disposition home or self-care (01) | DRG 483 ==
LOC: ASU 05:01 → 3E 09:14
DX: J44.9 Chronic obstructive pulmonary disease, unspecified; I45.10 Unspecified right bundle-branch block; M10.9 Gout, unspecified; E78.5 Hyperlipidemia, unspecified; Z79.4 Long term (current) use of insulin; M75.122 Complete rotator cuff tear or rupture of left shoulder, not specified as traumatic; K21.9 Gastro-esophageal reflux disease without esophagitis; I10 Essential (primary) hypertension; H91.93 Unspecified hearing loss, bilateral; Z79.82 Long term (current) use of aspirin; E11.40 Type 2 diabetes mellitus with diabetic neuropathy, unspecified; M66.812 Spontaneous rupture of other tendons, left shoulder; Z87.891 Personal history of nicotine dependence